=== PATIENT | female | born 1985 | race Caucasian/White ===

== ENCOUNTER 2017-12-02 22:03 | Inpatient (IN) | payer OTHER ==
[~2017-12-02] VITALS: Ht 172.7 cm; Wt 127.0 kg
[~2017-12-02 22:03] MED LIST: CODITUSS DM SY473 ML PO; KEFLEX500 MG PO
[2017-12-02 22:10] VITALS: BP 176/103
[2017-12-02 22:23] LABS: URINE BILIRUBIN NEGATIVE (Negative); URINE BLOOD NEGATIVE (Negative); URINE CLARITY CLEAR; URINE COLOR YELLOW; URINE GLUCOSE-RANDOM NEGATIVE (Negative); URINE KETONES NEGATIVE (Negative); URINE LEUKOCYTES-REFLEX NEGATIVE (Negative); URINE NITRITE-REFLEX NEGATIVE (Negative); URINE PROTEIN NEGATIVE (Negative); URINE SPECIFIC GRAVITY >= 1.030 (1.005-1.030); URINE UROBILINOGEN 0.2 E.U./dl (0.2-1.0)
[2017-12-02 22:51] LABS: ABSOLUTE BASOPHILS 0.1 thou/uL (0.0-0.2); ABSOLUTE EOSINOPHILS 0.1 thou/uL (0.0-0.7); ABSOLUTE LYMPHOCYTES 1.9 thou/uL (0.8-5.3); ABSOLUTE NEUTROPHILS 11.1 thou/uL (1.6-8.1); BASOPHILS 0.8 %; EOSINOPHILS 0.7 %; HEMATOCRIT 35.8 % (37.0-47.0); HEMOGLOBIN 11.5 gm/dL (12.0-15.0); LYMPHOCYTES 13.4 %; MCH 23.2 pg (26.0-34.0); MCV 72.3 fL (80.0-100.0); MONOCYTES 7.3 %; MPV 7.6 fl. (7.2-11.1); NUCLEATED RBCS 0 /100WBC; PLATELET COUNT* 382 thou/uL (150-400); POLYS 77.8 %; RBC 4.95 mil/uL (4.20-5.00); RDW-CV 16.4 % (10.5-14.5); WBC 14.2 thou/uL (4.0-11.0)
[2017-12-02 22:56] LABS: CALCIUM 8.2 mg/dL (8.5-10.1); CREATININE 0.9 mg/dL (0.6-1.3); POTASSIUM 3.7 mmol/L (3.5-5.1)
[2017-12-02 23:01] LABS: ALBUMIN 3.2 g/dL (3.4-5.0); TOTAL BILIRUBIN 0.2 mg/dL (<0.1-1.0); TOTAL PROTEIN 7.8 g/dL (6.4-8.2)
[2017-12-03 02:05] VITALS: BP 146/88
[2017-12-03 02:14] VITALS: BP 141/78
--- NOTE | 2017-12-03 04:33 | NUR ---
PATIENT ARRIVED ON UNIT AT 0205. TRANSFERRED STANDBY ASSIST TO THE BED. ORIENTED TO BED AND CONTROLS. ADMISSION COMPLETE CHARTED. VITAL SIGNS STABLE ON ROOM AIR. ALERT AND ORIENTED X4 THROUGHOUT SHIFT. IV PATENT AND INFUSING IN THE RIGHT AC. PAIN MANAGED WITH IV MEDICATION. DENIES NAUSEA AT THIS TIME. PATIENT STATES SHE HAS NEVER BEEN IN THE HOSPITAL. NURSING CONTINUES TO EDUCATE PATIENT ON HOSPITAL ROUTINES. TRANSFERS AD LINDA TO THE RESTROOM. MAINTAINED NPO STATUS. REPOSITIONING SELF IN BED. HOURLY ROUNDING COMPLETE. CALL LIGHT WITHIN REACH. NURSING WILL CONTINUE TO MONITOR.
[2017-12-03 08:00] VITALS: BP 118/65
[2017-12-03 16:43] VITALS: BP 115/63
--- NOTE | 2017-12-03 17:09 | NUR ---
ASSUMED CARE THIS AM, NO DISTRESS NOTED, VSS, SEE ASSESSMENT FOR DETAILS. ABD US COMPLETED THIS AM, ADI ON UNIT FOR CONSULT THIS AFTERNOON, PROGRESSING DIET TO FULL LIQUID, CECILLE WELL OF THIS NOTE. NEW IV ACCESS TO LEFT FA DUE TO OTHER IV INFILTRATING. DENIES PAIN/NAUSEA, CECILLE IV FLUID WELL, PLAN OF CARE REVIEWED, DENIES QUESTIONS AT THIS TIME, CONT POC.
[2017-12-03 21:06] VITALS: BP 137/82
[2017-12-04 03:58] LABS: ABSOLUTE EOSINOPHILS 0.1 thou/uL (0.0-0.7); ABSOLUTE MONOCYTES 0.6 thou/uL (0.0-1.2); ABSOLUTE NEUTROPHILS 6.5 thou/uL (1.6-8.1); BASOPHILS 0.4 %; EOSINOPHILS 1.4 %; HEMATOCRIT 34.4 % (37.0-47.0); HEMOGLOBIN 10.6 gm/dL (12.0-15.0); LYMPHOCYTES 21.6 %; MCH 22.9 pg (26.0-34.0); MCHC 30.8 g/dL (28.0-37.0); MCV 74.3 fL (80.0-100.0); MONOCYTES 6.6 %; MPV 7.8 fl. (7.2-11.1); NUCLEATED RBCS 0 /100WBC; PLATELET COUNT* 336 thou/uL (150-400); RBC 4.62 mil/uL (4.20-5.00); WBC 9.3 thou/uL (4.0-11.0)
[2017-12-04 04:14] LABS: ALBUMIN 2.7 g/dL (3.4-5.0); CALCIUM 7.9 mg/dL (8.5-10.1); CREATININE 0.9 mg/dL (0.6-1.3); POTASSIUM 3.8 mmol/L (3.5-5.1); TOTAL BILIRUBIN 0.3 mg/dL (<0.1-1.0); TOTAL PROTEIN 6.7 g/dL (6.4-8.2)
--- NOTE | 2017-12-04 04:31 | NUR ---
PATIENT HAS REMAINED ALERT AND ORIENTED X 4 THROUGHOUT THE SHIFT AND RESTING QUIETLY AT HOURLY ROUNDS. UP INDEPENDENTLY IN THE ROOM. HAS DENIED NEED FOR PAIN OR NAUSEA MEDICATION OVERNIGHT. VITAL SIGNS STABLE. 0316 BLOOD SUGAR STABLE. IVF'S PER ORDERS. CONTINUE TO MONITOR.
[2017-12-04 05:16] LABS: ESR (SEDRATE) 40 mm/hr (0-20)
[2017-12-04 06:45] LABS: HYPOCHROMASIA 1+; PLATELET ESTIMATE ADEQUATE
[2017-12-04 08:00] VITALS: BP 126/71
[2017-12-04 16:00] VITALS: BP 140/75
[2017-12-04 21:00] VITALS: BP 156/87
[2017-12-05 02:10] LABS: GLYCOHEMOGLOBIN (HGB A1C) 6.5 % (4.8-5.6)
--- NOTE | 2017-12-05 04:39 | NUR ---
PATIENT HAS REMAINED ALERT AND ORIENTED X 4 THROUGHOUT THE SHIFT AND RESTING QUIETLY ON HOURLY ROUNDS. HAS DENIED NAUSEA. MEDICATED X 1 FOR MENSTRAL CRAMPING TO GOOD EFFECT. HS BLOOD SUGAR 111. UP INDEPENDENTLY IN THE ROOM. VITAL SIGNS STABLE. CONTINUE TO MONITOR.
[2017-12-05 05:09] LABS: HEMATOCRIT 32.9 % (37.0-47.0); HEMOGLOBIN 10.3 gm/dL (12.0-15.0); MCH 23.2 pg (26.0-34.0); MCHC 31.4 g/dL (28.0-37.0); MCV 73.8 fL (80.0-100.0); MPV 8.6 fl. (7.2-11.1); RBC 4.45 mil/uL (4.20-5.00); RDW-CV 15.8 % (10.5-14.5); WBC 8.3 thou/uL (4.0-11.0)
[2017-12-05 05:22] LABS: ALBUMIN 2.6 g/dL (3.4-5.0); CALCIUM 7.9 mg/dL (8.5-10.1); CREATININE 0.8 mg/dL (0.6-1.3); MAGNESIUM 2.1 mg/dL (1.8-2.4); POTASSIUM 4.1 mmol/L (3.5-5.1); TOTAL BILIRUBIN 0.2 mg/dL (<0.1-1.0); TOTAL PROTEIN 6.6 g/dL (6.4-8.2)
[2017-12-05 08:00] VITALS: BP 143/100
[2017-12-05] MEDS ORDERED: ONDANSETRON HCL4 M2 PO (11:27)
--- NOTE | 2017-12-05 13:15 | NUR ---
Nutrition: Pt admitted with acute pancreatitis. Lipase down to 469 now. Consult received for "other." Pt has hx of morbid obesity, GB polyp. Wt: 280#. Heart Healthy (Low Fat) diet is ordered. Diet is advanced to Low Fat/Heart Healthy. Pt appears nutritionally low risk.
[2017-12-05 14:14] VITALS: BP 143/100
--- NOTE | 2017-12-05 14:52 | NUR ---
ASSUMED CARE THIS AM, VSS, NO DISTRESS NOTED, SEE ASSESSMENT FOR DETAILS. DISCHARGE ORDERS RECEIVED, IV ACCESS REMOVED WITHOUT INCIDENT, DISCHARGE INSTRUCTIONS, F/U APPTS AND PRESCRIPTIONS DISCUSSED WITH AND GIVEN TO PATIENT, DENIES QUESTIONS. PERSONAL EFFECTS GATHERED, ACCOUNTED FOR, IN COMPANY OF PATIENT, AMBULATED TO MAIN ENTRANCE IN STABLE CONDITION IN COMPANY OF NURSING STAFF.
[2017-12-06 06:05] LABS: IgG 1016 mg/dL (700-1600)
--- NOTE | 2017-12-08 14:44 | CON ---
[address] [address] CONSULTATION Name: RODRIGUEZ TRAORE Room: [address] IN M.R.#: [id number] Admission: 12/03/17 Attend Phys: Rose Marie Tamez Discharge: 12/05/17 Date of : 89 Report #: [id number] THIS REPORT FOR: //name// CC: ASUNCION Hooper MD DATE OF SERVICE: 12/03/2017 REFERRING PHYSICIAN: Karie Parr MD. REASON FOR CONSULTATION: Abdominal pain. IMPRESSION: 1. Epigastric pain with mildly elevated lipase -- suspect self-limited pancreatitis likely related to biliary tract disease (gallbladder sludge or debris). 2. Microcytic anemia, which is longstanding with history of menorrhagia -- no history to suggest gastrointestinal blood loss. 3. Chronic constipation without any worrisome symptoms. RECOMMENDATIONS: 1. At the present time, would just check some additional laboratory test to evaluate for source of pancreatitis including a lipid profile and IgG4 level as well as celiac sprue serologies. 2. We will check labs to evaluate her microcytic anemia and if she is iron deficient, we will begin her on some Fusion Plus iron supplement to help build up her blood counts. 3. If she has recurrent issues with pancreatitis, she will need to undergo an endoscopic ultrasound and if negative, empiric laparoscopic cholecystectomy. 4. If she is indeed iron deficient, we will consider endoscopic evaluation of her upper and lower GI tract as an outpatient, particularly if her celiac sprue serologies come back as abnormal. 5. In the interim, begin only clear or full liquid diet, advance as tolerated tomorrow. 6. I have discussed plans with the patient as well and she is agreeable with the same. HISTORY OF PRESENT ILLNESS: The patient is a very pleasant 32-year-old white female, who started feeling poorly on with severe abdominal pain with associated nausea. She has never had this kind of pain before. It is mostly in the epigastric area and radiates into the back. She denies complaints of any postprandial abdominal pain, although she does have some issues with certain foods that give her some trouble, which is not feeling well. She denies any problem with dysphagia, odynophagia, chronic reflux [place] [address] CONSULTATION Name: RODRIGUEZ TARORE Room: [address] IN [facility]#: [id number] Admission: 12/03/17 Attend Phys: Rose Marie Tamez Discharge: 12/05/17 Date of : 89 Report #: [id number] does have tendency towards constipation. She is not taking anything for the same. She has never had this kind of pain before and has no known family history of any biliary tract disease or pancreatic issues. She was seen through the Emergency Room and found to have a markedly elevated lipase, but a normal appearing CT scan. Her abdominal ultrasound is negative for gallstones. She is admitted to the hospital for further evaluation and treatment. ALLERGIES: None. MEDICATIONS: None. PAST MEDICAL AND SURGICAL HISTORY: Remarkable for heavy periods, for which she has been on iron supplementation in the past and states she does not absorb the iron. So, I am not sure what this means. She has never been . SOCIAL HISTORY: The patient is single. She does smoke. Does not drink alcohol on a regular basis. FAMILY HISTORY: Negative. PHYSICAL EXAMINATION: GENERAL: Reveals a pleasant 32-year-old female, who is awake and alert. CARDIOPULMONARY: Reveals regular rate and rhythm. LUNGS: Clear. ABDOMEN: Soft. She was tender in the epigastric area. No rebound or guarding noted. LABORATORY DATA: From admission revealed white count of 14.2, hemoglobin 11.5, platelet count of 382,000. Her MCV is only 17.3 and RDW 16.4. Her differential is normal. Her sodium 135, potassium 3.7, chloride 101, bicarbonate is 28, BUN is 12, creatinine is 0.9, GFR is 74. Her total bilirubin 0.2, alkaline phosphatase 72, AST 13, ALT 16, albumin is 3.2. Her lipase is 10,185. CT scan and abdominal ultrasound is as above. DISCUSSION: At the present time, I suspect she probably has biliary tract sludge and debris. We will hold off on any further studies including PIPIDA scan, etc. and follow her expectantly. If she has continued recurrent problems, we will proceed with endoscopic ultrasound and if negative, laparoscopic cholecystectomy. If she does have evidence for iron deficient anemia, we will likely get her set up as an outpatient for upper and lower endoscopy since it has been a longstanding problem. <ELECTRONICALLY SIGNED> By: Sanjeev Quiles DO 12/08/17 [id number] [id number] Quiles DO /nt
== END 2017-12-05 14:56 | disposition home or self-care (01) | DRG 439 ==
LOC: M.ERS 22:03 → M.TBA-ER 12-03 01:20 → M.3W 12-03 01:20
PROVIDERS: Emergency Medicine; Family Medicine; Internal Medicine Gastroenterology; ADMIT Internal Medicine
DX: K85.90 Acute pancreatitis without necrosis or infection, unspecified (principal); Z68.41 Body mass index [BMI] 40.0-44.9, adult; D50.9 Iron deficiency anemia, unspecified; K59.09 Other constipation; K82.4 Cholesterolosis of gallbladder; E66.01 Morbid (severe) obesity due to excess calories; I10 Essential (primary) hypertension; E86.0 Dehydration; R73.9 Hyperglycemia, unspecified; N92.0 Excessive and frequent menstruation with regular cycle; Z28.21 Immunization not carried out because of patient refusal; Z88.1 Allergy status to other antibiotic agents; Z83.49 Family history of other endocrine, nutritional and metabolic diseases; Z79.899 Other long term (current) drug therapy